=== PATIENT | female | born 1930 | race Caucasian/White ===

== ENCOUNTER 2017-07-21 21:02 | Emergency (ER) | payer OTHER ==
[2017-07-21] MEDS ORDERED: LET GEL TOPICAL 1 EA SYR TP ONE ×3 (21:09→21:56)
[2017-07-21] MEDS ORDERED: KETOROLAC 30 MG/1 ML SDV IVP ONE (21:14)
[2017-07-21] MEDS ORDERED: NS 500 ML IV ONE (21:19)
--- NOTE | 2017-07-21 21:36 | EDPHY ---
H & P Time Seen by Provider: 07/21/17 21:04 HPI/ROS: This patient fell at home injuring her right wrist. She was sitting in her dining room table stood up and fell. She fell on outstretched right hand with obvious deformity and 8/10 pain to the region of the distal radius with dinner fork deformity. She is brought in by her daughter and son-in-law along with another friend. She reports mild posterior shoulder pain in addition. She also has an abrasion to the right elbow. She is uncertain of why she fell. She did not have any antecedent symptoms of lightheadedness, palpitations or other. ROS: Constitutional: No fevers or chills. No significant fatigue. HEENT: She does not think she struck her head though her daughter notes that her eyeglasses are bent a bit in the right side suggesting that she did bump her head. She denies any facial pain, nasal injury, dental injury or other. Neuro: No headache. She has some tingling to the right hand since the fall. She denies any other numbness, tingling or weakness. Integumentary: Abrasion to the right elbow. Small abrasion to the ulnar aspect of her wrist versus subtle open fracture Cardiovascular: No chest pain or heart palpitations. No lightheadedness. GI: No recent vomiting. No abdominal pain 7 point ROS is otherwise negative. Past Medical/Surgical History: Bowel obstruction with ileostomy Smoking Status: Never smoked Physical Exam: Pleasant 86-year-old female with normal vital signs General Appearance: Alert, no distress. Eyes: Pupils equal and round no pallor or injection. ENT, Mouth: Mucous membranes moist. Respiratory: There are no retractions, lungs are clear to auscultation. Cardiovascular: Regular rate and rhythm. She maintains 2+ radialis pulse in the injured right wrist. She maintains brisk capillary refill in the right hand Gastrointestinal: Abdomen is soft and nontender, no masses, bowel sounds normal. Neurological: GCS 15. She maintains normal light touch sensation in the right hand. She is still able to move all the fingers to right hand. Skin: Warm and dry, no rashes. Musculoskeletal: Neck is supple nontender. Extremities are symmetrical, full range of motion. Psychiatric: Patient is oriented X 3, there is no agitation. DIFFERENTIAL DIAGNOSIS: After history and physical exam differential diagnosis was considered for distal radius fracture/Colles fracture, ulnar fracture, lunate dislocation, perilunate dislocation, Constitutional: Initial Vital Signs Temperature (C) 36.5 C 07/21/17 21:30 Heart Rate 58 L 07/21/17 21:30 Respiratory Rate 14 07/21/17 21:30 Blood Pressure 133/74 H 07/21/17 21:30 O2 Sat (%) 95 07/21/17 21:30 O2 Delivery Mode Room Air Allergies/Adverse Reactions: Penicillins Allergy (Mild, Verified 07/21/17 21:22) Rash Home Medications: Medication Instructions Recorded Travoprost Z 0.004% [Travatan Z 1 drops EACHEYE HS 04/19/16 0.004% (*)] C/E/Zn/Cu/OM3/DHA/EPA/LUT/ZEAX 2 each PO BIDMEAL 04/20/16 [Preservision Areds 2 Softgel] Cholecalciferol Vit D3 [Vitamin D3 5,000 units PO MOTH 04/20/16 (*)] traMADol [Ultram 50 mg (*)] 50 - 100 mg PO Q4 PRN #8 tab 07/21/17 MDM/Departure - MDM Diagnostics: Initial wrist x-rays with Colles fracture and ulnar styloid fracture with 100% dorsal displacement and foreshortening Post reduction x-rays reveal still significant displacement dorsally though slightly improved. Imaging Results: Imaging Impressions Wrist X-Ray 07/21/17 21:06 Impression: Acute dorsally-displaced Colles' fracture of the distal radius with an associated ulnar styloid avulsion fracture. Imaging: I viewed and interpreted images myself Procedures: Hematoma block: After verbal consent I scrubbed the dorsal aspect of the patient's distal radius with chlorhexidine and under sterile conditions used a 50 50 mix of 0.5% bupivacaine and 2% plain lidocaine, 23 gauge needle, located the hematoma and injected 10 mL with relief of pain. Patient tolerated this well without complications. Closed reduction indication: Extreme deformity with paresthesias Patient is placed in [place] finger traps for 15 min of traction on the fracture after hematoma block. She tolerated this well. I then performed a closed reduction with traction and manual reduction of the distal radius. She tolerated this well without complications own was placed in Orthoglass splint Splinting: Patient placed in Orthoglass sugar-tong splint by our tech with my supervision. Medications Given: Discontinued Medications Sodium Chloride (Ns) 500 mls @ 0 mls/hr IV EDNOW ONE; Wide Open PRN Reason: Protocol Stop: 07/21/17 21:20 Last Admin: 07/21/17 21:40 Dose: 500 mls Ketorolac Tromethamine (Toradol) 15 mg IVP EDNOW ONE Stop: 07/21/17 21:15 Last Admin: 07/21/17 21:58 Dose: 15 mg Morphine Sulfate (Morphine) 4 mg IVP EDNOW ONE Stop: 07/21/17 21:21 Last Admin: 07/21/17 21:40 Dose: 4 mg Tetracaine/Epinephrine/Lidocaine (Let Gel Topical) 1 ea TP EDNOW ONE Stop: 07/21/17 21:57 Last Admin: 07/21/17 21:15 Dose: 1 ea ED Course/Re-evaluation: IV is placed. Patient is treated with 4 mg of morphine and 15 mg of Toradol, 500 cc bolus She had partial relief of her pain with this. Discussion: Patient with grossly deformed Colles fracture with associated paresthesias the warranted acute reduction. Partial reduction accomplish the patient requires definitive orthopedic treatment. After reduction review of post reduction films with still significant displacement call is placed to on-call orthopedic physician. I spoke with Dr. Frances Ram, hand specialist on-call who will see the patient in follow-up in her office this week. - Depart Disposition: Home, Routine, Self-Care Clinical Impression: Multiple abrasions Colles' fracture Qualifiers: Encounter type: initial encounter Fracture type: closed Laterality: right Qualified Code(s): S52.531A - Colles' fracture of right radius, initial encounter for closed fracture Fracture of ulnar styloid Qualifiers: Encounter type: initial encounter Fracture type: closed Fracture alignment: displaced Laterality: right Qualified Code(s): S52.611A - Displaced fracture of right ulna styloid process, initial encounter for closed fracture Condition: Good Instructions: Wrist Fracture in Adults (ED) Additional Instructions: Diagnosis: 1. Right Colles fracture 2. Right ulnar styloid fracture 3. Abrasions Plan: Keep the splint on at all times. Keep the splint dry. Elevate the wrist when possible Tylenol and ice for pain control. If pain prevents sleep intake tramadol in addition. No driving on tramadol. Call Dr. Franco-professional services specialist listed below to arrange follow-up appointment for further evaluation in her office this week. Bring a copy of x- rays on the disc that we provide to that follow-up appointment. The numbness from the hematoma block typically last 2-6 hours. However, given year tingling in the affected hand it is possible that he may have a nerve injury from the fracture. Usually this will resolve over. Of days to weeks but occasionally is permanent. Return emergency department if you developed unbearable pain or other concerning symptoms prior to her follow-up with Dr. Franco. Prescriptions: traMADol [Ultram 50 mg (*)] 50 - 100 mg PO Q4 PRN #8 tab PRN Reason: breakthrough pain Referrals: Tatum Aguillon MD [Primary Care Provider] - As per Instructions Frances Ram MD [Medical Doctor] - As per Instructions Justus Lau MD [Medical Doctor] - As per Instructions
[2017-07-21 22:05] VITALS: RESP 14; TEMP 97.7
[2017-07-21] MEDS ORDERED: traMADol 50 MG TAB PO ONE (23:20)
[2017-07-22 00:01] VITALS: BP 143/77; PULSE 69; O2SAT 93
== END 2017-07-21 23:40 | disposition home or self-care (01) ==
LOC: CED 21:02
DX: S52.531A Colles' fracture of right radius, initial encounter for closed fracture (principal); S52.611A Displaced fracture of right ulna styloid process, initial encounter for closed fracture; S50.311A Abrasion of right elbow, initial encounter; E86.9 Volume depletion, unspecified; W19.XXXA Unspecified fall, initial encounter
CPT/HCPCS: 73100; 73110; 96361; 96374; 96375; 99284; J1885; J2270; L3980

== ENCOUNTER → 2017-09-01 | Outpatient (CLI) | payer OTHER | LOC: BRMIMAGING 14:59 | PROVIDERS: ATTEND Specialist | DX: S52.501D Unspecified fracture of the lower end of right radius, subsequent encounter for closed fracture with routine healing (principal) | CPT/HCPCS: 73110-PO ==